=== PATIENT | male | born 1990 | race Caucasian/White ===

== ENCOUNTER 2019-05-02 07:58 | Observation (INO) | payer OTHER, SELFPAY ==
--- NOTE | ~2019-05-02 | XR_ITS ---
EXAMINATION: XR abdomen/kub 1V INDICATION: Left flank pain TECHNIQUE: Supine view of the abdomen is obtained. COMPARISON: None FINDINGS: There is a 6 mm calcification of the left pelvis at the expected location of the ureteroves icular junction which corresponds to the stone identified on CT. The bowel gas pattern is normal. No dilated loops of bowel are evident. The visualized osseous structures are normal. IMPRESSION: 1. 6 mm left pelvic calcification at the expected location of the ureterovesicular junction correspon ding to the stone identified on CT. Reviewed, dictated and finalized at location A. T SERVICES REPRESENTATIVE IMPRESSION: 1. 6 mm left pelvic calcification at the expected location of the ureterovesicu lar junction corresponding to the stone identified on CT.
--- NOTE | ~2019-05-02 | CT_ITS ---
EXAMINATION: CT abdomen pelvis wo con DATE: 05/02/2019 08:30 INDICATION: Left flank pain and nausea TECHNIQUE: Computed tomography (CT) of the abdomen and pelvis was performed without intravenous contr ast. The dose-length product (DLP) was 461.68 mGy-cm. Automated exposure control and iterative recons truction technique were employed. COMPARISON: None FINDINGS: The lung bases are clear. The heart size is normal. The liver, spleen, pancreas, gallbladde r, and adrenal glands are normal. The right kidney is unremarkable. There is a 7 mm stone at the left ureterovesicular junction which causes moderate left hydroureteronephrosis. A [address] one is present in the lower pole of the left kidney. No pathologically enlarged abdominal or pelvic l ymph nodes are identified. There is no free intraperitoneal gas or evidence of bowel obstruction. The appendix is normal. There appear to be changes of mastectomy. IMPRESSION: 1. 7 mm stone at the left ureterovesicular junction causing moderate left hydroureteronephrosis. Cons ider KUB for treatment planning purposes. 2. Nonobstructing left nephrolithiasis. Reviewed, dictated and finalized at location A. L TECHNICIAN IMPRESSION: 1. 7 mm stone at the left ureterovesicular junction causing moderate left hydro ureteronephrosis. Consider KUB for treatment planning purposes. 2. Nonobstructing left nephrolithiasis.
[2019-05-02 08:07] VITALS: BP 152/84; PULSE 99; RESP 24; TEMP 36.4; O2SAT 100
[2019-05-02 08:18] LABS: Basophils Percent Auto 0.4 % (0.2-1.2); Eosinophils Absolute Auto 0.2 K/mm3 (0-0.3); Eosinophils Percent Auto 1.5 % (0-4.4); Hematocrit 46.1 % (42.0-52.0); Hemoglobin 15.9 g/dL (14.0-18.0); Immature Granulocyte Absolute 0.02 K/mm3 (0.00-0.031); Immature Granulocyte Percent A 0.2 % (0-0.5); Lymphocytes Absolute Auto 4.29 K/mm3 (0.9-3.2); Lymphocytes Percent Auto 42.3 % (18.3-44.2); Mean Corpuscular HGB Conc 34.5 g/dl (32-36); Mean Corpuscular Hemoglobin 30.2 pg (26-34); Mean Corpuscular Volume 87.6 fl (80-100); Mean Platelet Volume 9.3 fl (7.4-10.4); Monocytes Absolute Auto 0.7 K/mm3 (0.1-0.6); Monocytes Percent Auto 6.8 % (2.6-8.5); Neutrophils Percent Auto 48.8 % (45.5-73.1); Platelet Count Result 350 k/mm3 (150-375); Red Blood Count 5.26 M/mm3 (4.6-6.20); Red Cell Distribution Width 11.9 % (11.5-14.5); White Blood Count 10.1 K/mm3 (4.5-10.0)
[2019-05-02 08:24] LABS: Add Urine Microscopic? YES; Amorphous Sediment Urine Few; Appearance Urine Cloudy (Clear); Bilirubin Urine Negative (Negative); Blood Urine 1+ (Negative); Color Urine Yellow (Yellow); Glucose Urine UA Negative (Negative); Ketones Urine Trace mg/dL (Negative); Leukocyte Esterase Ur Trace LEU/UL (Negative); Mucus Urine Heavy /lpf; Nitrate Urine Negative (Negative); Protein Urine 2+ mg/dL (Negative); Specific Grav Ur 1.029 (1.001-1.035); Squamous Epithelial Cell Urine Occasional /hpf (Few); Urobilinogen Urine Negative mg/dL (<2.0)
[2019-05-02] MEDS: ONDANSETRON INJ 4 MG/2 ML VIAL IV PUSH (08:25)
[2019-05-02] MEDS: SODIUM CHLORIDE 0.9% IV 1,000 ML 999 ML IV CONT (08:25)
[2019-05-02] MEDS: MORPHINE SULFATE 4 MG/ML INJ IV PUSH (08:26)
[2019-05-02 08:29] LABS: Alanine Aminotransferase 23 U/L (4-50); Albumin Level 5.1 g/dL (3.5-5.1); Alkaline Phosphatase 62 U/L (38-126); Aspartate Amino Transferase 24 U/L (17-59); Bilirubin,Total 0.5 mg/dL (0.2-1.3); Blood Urea Nitrogen 17 mg/dL (9-20); Carbon Dioxide 20 mmol/L (22-30); Chloride 101 mmol/L (98-107); Estimated CRCL calculation 78 ml/min; Estimated Glomerular Filt Rate > 60; Glucose 141 mg/dL (75-110); Lipase 61 U/L (23-300); Potassium 3.7 mmol/L (3.4-5.0); Sodium 137 mmol/L (137-145)
--- NOTE | 2019-05-02 08:35 | ED.ABDPAIN ---
HPI - Abdominal Pain General Chief Complaint: Abdominal Pain Stated Complaint: abd and back pain Time Seen by Provider: 05/02/19 08:06 Source: patient Mode of arrival: ambulatory Limitations: no limitations History of Present Illness HPI narrative: This is a 28 year old male that presents to the ER for left flank pain since this morning. Reports sudden onset sharp left sided flank pain. Reports the pain has been constant. Reports the pain is now in his LLQ. Also reports nausea, vomiting, dysuria and trouble urinating. Denies fever or hematuria. Related Data Home Medications Medication Instructions Recorded Confirmed No Home Medications 05/02/19 05/02/19 Allergies Allergy/AdvReac Type Severity Reaction Status Date / Time No Known Allergies Allergy Unverified 05/02/19 08:11 Review of Systems Review of Systems: Narrative: CONSTITUTIONAL: Denies fever GASTROINTESTINAL: Reports abdominal pain, nausea, vomiting. Denies diarrhea. GENITOURINARY: Reports dysuria. Denies hematuria. MUSCULOSKELETAL: Reports back pain All systems reviewed & are unremarkable except as noted in HPI and below PMFSH Past Medical History Medical History (Updated 05/02/19 @ 10:42 by Tawana Han PA-C) Healthy male adult Social History Social History (Updated 05/02/19 @ 08:35 by Tawana Han PA-C) Smoking status: Never smoker Substance use: never Gender identity (if verbalized by the patient): Male Exam Narrative: Exam Narrative: GENERAL: Well-appearing, well-nourished, and in no acute distress. HEAD: Normocephalic, atraumatic. EYES: EOMI. CHEST: Clear to auscultation. No respiratory distress. No wheezes rales or rhonchi HEART: Regular rate and rhythm. No murmur heard. Normal peripheral pulses. ABDOMEN: Soft, nondistended, normal active bowel sounds. Tender to palpation of the LLQ, without guarding. L sided CVA tenderness EXTREMITIES: Normal range of motion. No edema. SKIN: Warm, dry, no rash. NEURO: No focal deficits. Alert and oriented x3. PSYCH: Normal mood and affect Course Consultations Consultation #1: Spoke with urology about patient and work-up. Patient will be admitted for pain control. He will have a procedure done at 4 this afternoon Vital Signs Vital signs: Vital Signs Temperature 97.6 F 05/02/19 08:07 Pulse Rate 99 05/02/19 08:07 Respiratory Rate 24 H 05/02/19 08:07 Blood Pressure 152/84 H 05/02/19 08:07 Pulse Oximetry 100 05/02/19 08:07 Temperature 97.6 F 05/02/19 08:07 Pulse Rate 100 05/02/19 10:12 Respiratory Rate 16 05/02/19 10:12 Blood Pressure 162/75 H 05/02/19 10:12 Pulse Oximetry 96 05/02/19 10:12 MDM - Abdominal Pain MDM Narrative Medical decision making narrative: Patient presents the emergency department for left-sided flank pain since this morning. He is afebrile and nontoxic-appearing. Mild leukocytosis on CBC to 10.1. Creatinine is 1.2. Do not have any previous labs to see if this is patient's baseline. UA with red blood cells, white blood cells and leukoesterase. CT abdomen pelvis shows 7 mm stone at the left UVJ causing moderate left hydroureteronephrosis. KUB identifies stone. Patient's pain hard to control, and patient has very large stone. Spoke with urology about patient and work-up who will admit for pain control. He will have a procedure done this afternoon. Patient was given a dose of IV antibiotics in the ED Lab Data Attestation: I reviewed the patient's lab results. Result diagrams: 05/02/19 08:11 05/02/19 08:11 Labs: Lab Results 05/02/19 05/02/19 05/02/19 Range/Units 08:11 08:11 08:11 WBC 10.1 H (4.5-10.0) K/mm3 RBC 5.26 (4.6-6.20) M/mm3 Hgb 15.9 (14.0-18.0) g/dL Hct 46.1 (42.0-52.0) % MCV 87.6 (80-100) fl MCH 30.2 (26-34) pg MCHC 34.5 (32-36) g/dl RDW 11.9 (11.5-14.5) % Plt Count 350 (150-375) k/mm3 MPV 9.3 (7.4-10.4) fl Immature Gran % (Auto)
[2019-05-02] MEDS: HYDROMORPHONE HCL 1 MG/ML INJ 0.5 MG IV PUSH ×2 (09:28→13:32)
[2019-05-02 10:12] VITALS: BP 162/75; PULSE 100; RESP 16; O2SAT 96
--- NOTE | 2019-05-02 11:40 | ADMGEN ---
This patient, Brice Reynaga, was admitted to Medical Room 248-. Patient/family oriented to hospital policies and general routines including ID bracelet, bed and alarms, visiting hours, pain management, procedures, bathroom and other care routines, personal items, smoking policy, room service/diet, and visiting hours. Valuables list has been completed. Information on how to activate the Rapid Response Team has been discussed. Patient/Family are encouraged to report perceived risks to care and to ask questions if they do not understand what they are told or what they should do.
[2019-05-02 11:42] VITALS: BMI 28.3
[2019-05-02] MEDS: SODIUM CHLORIDE 0.9% IV 1,000 ML 125 ML IV CONT (12:06)
--- NOTE | 2019-05-02 12:57 | WPDURCON ---
Assessment and Plan Assessment and plan (1) Ureterolithiasis: Code(s): N20.1 - Calculus of ureter Status: Acute Assessment and Plan: Obtain Consent: Cystoscopy, left ureteroscopy with stone extraction, possible left stent placement, left retrograde pyelogram, possible holmium laser. Keep NPO. Plan to discharge home afterward with antibiotics, pain meds and Oxybutynin. Urology Consult Note HPI Date Seen: 05/02/19 Requesting Physician: Yarely Goff MD Primary Care Provider: RESTAURANT AND BAR MANAGER PHYSICIAN Consult Narrative Narrative: Brice Reynaga is a 28 year old male who presents with acute left flank pain, that started in the floor manager hours, which did radiate to the LLQ. He notes nausea, no vomiting, also denies hematuria or frequency. He does state that he had some dysuria. He denies a previous history of kidney stones, and is otherwise a healthy male. 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 He is here visiting for one month d/t his needing a heart valve procedure that was best to be done in [place], but they are planning to head back to [place] next week. His UA is slightly suspicious of a UTI, culture is pending. Creatinine is normal and WBC is slightly elevated at 10.1. His CT/KUB shows a left 7mm UVJ stone, and a 2mm non obstructive left renal stone. KUB shows only the UVJ stone. Review of Systems Respiratory: Respiratory: Reports no additional respiratory complaints Gastrointestinal: Gastrointestinal: Reports nausea and Denies vomiting Genitourinary: Genitourinary: Denies hematuria, Reports dysuria and Denies urinary frequency [facility] Past Medical History Medical History Healthy male adult Family History Family History Mother Hypertension Social History Social History Smoking status: Never smoker Smokeless tobacco user: chewing tobacco Additional smoking assessment comments: 1 can of chew a week Alcohol intake: current Drinks per week: 6 Substance use: never Gender identity (if verbalized by the patient): Male Spiritual care concerns: No Agree to blood products: Yes Meds Home Medications and Allergies Home Medications Medication Instructions Recorded Confirmed Type No Home Medications 05/02/19 05/02/19 History Allergies Allergy/AdvReac Type Severity Reaction Status Date / Time No Known Allergies Allergy Unverified 05/02/19 08:11 Vital Signs Vital Signs - 24 hr 05/02/19 08:07 05/02/19 10:12 Temperature 97.6 F Pulse Rate 99 100 Respiratory Rate 24 H 16 Blood Pressure 152/84 H 162/75 H Pulse Oximetry 100 96 Exam Resp: Effort & Inspection: normal respiratory effort Cardio: Rate: regular rate GI: GI Palp: Yes Tenderness to palpation present (GI) (LLQ) Extrem: General: no edema Results Labs CBC & Chem 7: 05/02/19 08:11 05/02/19 08:11 Labs: Short CBC 05/02/19 Range/Units 08:11 WBC 10.1 H (4.5-10.0) K/mm3 Hgb 15.9 (14.0-18.0) g/dL Hct 46.1 (42.0-52.0) % Plt Count 350 (150-375) k/mm3 BMP 05/02/19 08:11 Sodium 137 Potassium 3.7 Chloride 101 Carbon Dioxide 20 L BUN 17 Creatinine 1.20 Glucose 141 H Calcium 10.0 Liver Function 05/02/19 Range/Units 08:11 Total Bilirubin 0.5 (0.2-1.3) mg/dL AST 24 (17-59) U/L ALT 23 (4-50) U/L Alkaline Phosphatase 62 (38-126) U/L Albumin 5.1 (3.5-5.1) g/dL Urine 05/02/19 Range/Units 08:11 Urine Color Yellow (Yellow) Urine Appearance Cloudy H (Clear) Urine pH 7.0 (5.0-9.0) Ur Specific [place] 1.029 (1.001-1.035) Urine Protein 2+ H (Negative) mg/dL Urine Glucose (UA) Negative (Negative) mg/dL
[2019-05-02 14:00] VITALS: BP 132/69; PULSE 85; RESP 16; TEMP 36.2; O2SAT 99
--- NOTE | 2019-05-23 16:32 | P.DS_ITS ---
DS: Diagnosis Admitting Diagnosis Admitting Diagnosis: Calculus of ureter DS: Summary Time Spent with Patient Time attestation: Pt admitted with ureteral stone. Pain improved overnight. Discharged home with plan for outpatient stone management. Exam Const: General: no acute distress Eyes: General: appearance normal, both eyes and all related structures GI: GI Palp: Yes Soft to palpation Discharge Plan Discharge Attending physician on discharge: Yarely Goff Consulting providers: Tracee Alvarez ; Kevin Rodriguez Discharging Clinician: Tracee Alvarez Anticipated Discharge Date/Time: 05/02/19 18:05 Patient Disposition: Home, Self-Care Activity: august shower Diet: regular Discharge Instructions: Ok to follow up with Dr Meyers tomorrow 05/03/2019 No restrictions at this time. Patient Instructions: Antibiotic Form Stand Alone Forms: General Discharge Information Follow-up/Referrals: Tracee Alvarez, NURSING HOME ASSISTANT ADMINISTRATOR [Advanced Practice Nurse] - Discharge Medications: New oxybutynin chloride 5 mg tablet 5 mg PO TID PRN (Reason: bladder spasms) 5 Days Qty: 15 RF: 0 hydrocodone-acetaminophen 5-325 mg tablet 1 tablet PO Q6H PRN (Reason: pain) Qty: 20 RF: 0 cephalexin [Keflex] 500 mg capsule 500 mg PO Q8H 5 Days Qty: 15 RF: 0 Date of admission: 05/02/19 10:40 Primary Care Provider: PHYSICIAN,HISTOLOGY TEACHER Admitting Provider: Yarely Goff Discharge Date/Time: 05/02/19 17:10 Attending physician on admission: Yarely Goff Condition: Stable
== END 2019-05-02 17:10 | disposition home or self-care (01) ==
LOC: ANHED 10:42 → ANH2MED 10:53
PROVIDERS: Admitting Provider Urology; Emergency Provider Family Medicine; Visit Provider Urology
DX: N20.1 Calculus of ureter (principal); F17.220 Nicotine dependence, chewing tobacco, uncomplicated
CPT/HCPCS: 36415; 51701; 74018; 74176; 80053; 81001; 83690; 85025; 87086; 96361; 96365; 96367; 96375; 96376; 99285; G0378; J0131; J0696; J1170; J2270; J2405; J7030